=== PATIENT | female | born 1990 | race Caucasian/White ===

== ENCOUNTER 2022-04-29 07:32 | Emergency (ER) | payer OTHER, SELFPAY ==
--- NOTE | ~2022-04-29 | CT_ITS ---
EXAMINATION: CT ANGIOGRAM OF THE CHEST WITH CONTRAST (CT PULMONARY ANGIOGRAM FOR PE) CLINICAL INFORMATION: Exertion dyspnea. Elevated D-dimer. COMPARISON: Chest radiograph from 04/29/2022. TECHNIQUE: Prior to contrast administration, noncontrast localization images were obtained. Subsequently, multidetector volumetric imaging was performed from the thoracic inlet to below the diaphragms following the administration of 65 mL Omnipaque 350 intravenous contrast. No contrast reaction reported. Sagittal, coronal, and MIP oblique sagittal reformatted images were obtained on the CT workstation, uploaded to PACS, and reviewed. This CT examination was performed using dose optimization techniques as appropriate, variously including the following: *Automated exposure control *Adjustment of mA and/or kV according to patient size (this includes techniques or standardized protocols for targeted exams where dose is matched to indication/reason for exam; i.e. extremities or head) *Use of iterative reconstruction technique DLP: Total exam dose-length product 210 mGy-cm FINDINGS: LUNGS AND PLEURA: Trachea and central airways are widely patent and normal in caliber. Lungs are clear. No interstitial infiltrate, edema, consolidation or pleural effusion. No pneumothorax. There is no suspicious lung nodule or mass. QUALITY OF STUDY/CONTRAST BOLUS: Satisfactory. CARDIOVASCULAR: The pulmonary arteries are normal in size. No embolic filling defects are identified within the main, lobar or segmental vessels. Cardiac chambers are of normal size. No pericardial effusion. Thoracic aorta is normal. MEDIASTINUM/LOWER NECK: No mediastinal mass. The esophagus is unremarkable. The thyroid gland is partially included in the [id number]. There are no focal lesions within the gland. LYMPHATICS: No pathologic sized axillary, hilar or mediastinal lymph nodes. UPPER ABDOMEN: No contrast reflux into the inferior vena cava. No acute findings in the visualized portion of the upper abdomen. The visualized abdominal aorta is normal in caliber. OSSEOUS STRUCTURES: No acute or suspicious osseous abnormality. CT/CT angio chest PE protocol IMPRESSION: No acute imaging abnormalities in the chest. No evidence of pulmonary embolism, pneumonia or pleural effusion.
--- NOTE | ~2022-04-29 | XR_ITS ---
EXAMINATION: XR CHEST CLINICAL INFORMATION: Shortness of breath COMPARISON: None TECHNIQUE: Frontal view of the chest was obtained. FINDINGS: Lungs are well-inflated and clear. Trachea is midline in position. No interstitial disease, consolidation or mass. No pleural effusion or pneumothorax. Cardiac silhouette and pulmonary vessels are normal in size. The mediastinum and raul have normal contour. The visualized bones, and upper abdomen, are unremarkable. XR/XR chest 1V IMPRESSION: No evidence of pneumonia. No acute cardiopulmonary abnormality.
[2022-04-29 07:45] VITALS: BP 127/71; PULSE 71; RESP 18; TEMP 36.5; O2SAT 100; BMI 24.1
[2022-04-29 08:21] LABS: COVID-19 Test Negative (Negative); IDNOW Serial# 16C4AD1C; Influenza A Negative (Negative); Influenza B2 Negative (Negative)
--- NOTE | 2022-04-29 09:55 | ECG_ITS ---
Test Reason : sob Blood Pressure : / mmHG Vent. Rate : 063 BPM Atrial Rate : 063 BPM P-R Int : 154 ms QRS Dur : 082 ms QT Int : 416 ms P-R-T Axes : 001 066 038 degrees QTc Int : 425 ms Normal sinus rhythm with sinus arrhythmia RSR' or QR pattern in V1 suggests right ventricular conduction delay Otherwise normal ECG When compared with ECG of 18-JUL-2011 12:06, No significant change was found Referred By: Jacklyn Moseley Electronically Signed By:NORRIS ROBERTSON MD
--- NOTE | 2022-04-29 10:29 | ED.GENADULT ---
HPI - General Adult General Chief complaint: Upper Respiratory Symptoms Stated complaint: SOB Time Seen by Provider: 04/29/22 09:06 Source: patient Mode of arrival: ambulatory History of Present Illness HPI narrative: 31 year old female with no significant past medical history presenting to the ED complaining of exertional dyspnea and generalized fatigue/weakness x 2-3 days. Admits yesterday after walking up the stairs became very short of breath and near syncopal. Denies LOC. reports mild associated chest discomfort. Is a cigarette smoker. Denies fever, chills, abdominal pain, nausea/vomiting, calf pain, pedal edema, history of clots, recent travel Onset (ago): day(s) Related Data Allergies Allergy/AdvReac Type Severity Reaction Status Date / Time No Known Allergies Allergy Verified 04/29/22 07:44 [No Known Allergies*] Review of Systems Review of Systems: Constitutional: No Fever, No Chills, No Fatigue, No Malaise ENT/Mouth: No Ear Pain, No Nasal Congestion, No Sinus Pain, No Hoarseness, No sore throat, No Rhinorrhea, No Swallowing Difficulty Eyes: No Eye Pain, No Swelling, No Redness, No Vision Changes Cardiovascular: + Chest Pain, + SOB, + Dyspnea on Exertion, No Orthopnea, No Edema, No Palpitations Respiratory: No Cough, No Sputum, + Dyspnea Gastrointestinal: No Nausea, No Vomiting, No Diarrhea, No Constipation, No Abdominal pain Genitourinary: No Dysuria, No Urinary Frequency, No Hematuria, No Flank Pain, No Urinary Flow Changes, No Hesitancy Musculoskeletal: No joint pain, No Myalgias, No Joint Swelling Skin: No Skin Lesions, No rash Neuro: No Weakness, No Numbness, No Paresthesias, No Loss of Consciousness, + lightheadedness (resolved), No Headache Yes all other systems are reviewed and are negative Constitutional: Constitutional: Reports as per [facility] Past Medical History Attestation statement: The following information was validated with the patient. Social History Social History Advance Directives: No Advance Directives Information Provided: No Physical Exam ED Vital Signs: Vital Signs - 24 hr 04/29/22 07:45 04/29/22 11:03 Temperature 97.7 F Pulse Rate 71 64 Respiratory Rate 18 20 Blood Pressure 127/71 108/61 Pulse Oximetry 100 99 Oxygen Delivery Method Room Air Room Air BMI result Body Mass Index 24.1 Const General: cooperative, healthy appearing, no acute distress, alert and awake Orientation/consciousness: patient oriented x3 Limitations: no limitations HENMT Head: Yes normal to inspection and Yes atraumatic Ears: hearing grossly normal bilaterally General nose exam: Normal external nose present Face and sinus: Yes normal facial exam Eyes General: appearance normal, both eyes and all related structures EOM: EOMs intact bilaterally Neck Neck: Yes normal visual inspection and Yes no meningeal signs Resp Effort & Inspection: normal respiratory effort, no respiratory distress and not tachypneic Auscultation: clear to auscultation bilaterally, no crackles, no rales, no rhonchi and no wheezes Cardio Rate: regular rate Heart sounds: S1 normal heart sound present and S2 normal heart sound present GI Inspection: Yes normal to inspection Palpation (GI): Soft to palpation, nontender, no guarding and not rigid Skin Rashes: no rashes Wounds: no wounds Neuro General: patient oriented x3, gait normal, tone normal, moves all extremities, no meningeal signs, no focal motor deficits and CN's II-XI intact bilaterally Gait exam (Neuro): Normal gait present Extrem General: Yes normal to inspection and Yes no pedal edema Course Course Course Narrative: -1120--no leukocytosis. D-dimer elevated > will obtain CTA to rule out PE -troponin negative. Labs otherwise reassuring. UA contaminated will hold on antibiotic treatment until culture results -COVID-19 and influenza negative XR chest 1V IMPRESSION: No evidence of pneumonia. No acute cardiopulmonary abnormality. 1218--CT angio chest PE protocol IMPRESSION: No acute imaging abnormalities in the chest. No evidence of pulmonary embolism, pneumonia or pleural effusion. >Results discussed with patient including worrisome signs and symptoms and strict return precautions, and when to return to the emergency department. They verbalized understanding and feel safe for discharge at this time. Medications Administered Discontinued Medications Generic Name Dose Route Start Last Admin Trade Name Freq PRN Reason Stop Dose Admin Iohexol 65 ml 04/29/22 11:31 04/29/22 11:32 Iohexol 350 Mg/Ml 100 Ml Infus..Btl IV 04/29/22 11:32 65 ml ONCE ONE Administration Medical Decision Making [facility] Narrative Medical decision making narrative: 31 year old female with no significant past medical history presenting to the ED complaining of exertional dyspnea and generalized fatigue/weakness x 2-3 days. On exam vital signs stable, NAD, nontoxic appearing, exam nonfocal. Concern for viral illness vs PE. Lower suspicion for ACS or pneumonia. Plan: EKG, labs, CXR, COVID-19/influenza testing Medical Records Medical records reviewed: Yes I reviewed the patient's medical records. Lab Data Lab results reviewed: Yes I reviewed the patient's lab results. Result diagrams: 04/29/22 10:27 04/29/22 10:27 Labs: Lab Results 04/29/22 04/29/22 04/29/22 Range/Units 07:48 07:48 10:27 WBC 7.7 (4.8-10.8) X10*3/uL RBC 3.99 L (4.20-5.50) X10*6/uL Hgb 12.1 (12.0-16.0) g/dl Hct 37.0 (37.0-47.0) % MCV 92.7 (80.0-98.0) fL MCH 30.3 (27.0-33.0) pg MCHC 32.7 (31.0-35.0) g/dl RDW 14.7 (11.0-16.0) % Plt Count 252 (160-400) X10*3/uL MPV 10.2 (9.4-12.3) fL Immature Gran % (Auto) 0.5 H (0.0-0.4) % Neut % (Auto) 74.6 H (45-73) % Lymph % (Auto) 19.3 L (20-40) % [place] % (Auto) 3.8 (2-11) % Eos % (Auto) 1.3 (0-4) % Baso % (Auto) 0.5 (0-2) % Lymph # (Auto) 1.5 (1.2-4.9) X10*3/uL [place] # (Auto) 0.3 (0.1-1.2) X10*3/uL Eos # (Auto) 0.1 (0.0-0.4) X10*3/uL Baso # (Auto) 0.0 (0.0-0.2) X10*3/uL Abs Immat Gran (auto) 0.04 H (0.00-0.03) X10*3/uL Absolute Neuts (auto) 5.7 (2.0-8.3) x10*3/uL Absolute Nucleated RBC 0.000 (0.0-0.012) X10*3/uL Nucleated RBC % (auto) 0.0 (0.0-0.2) /100WBC PT (10.0-13.1) SEC INR (0.9-1.1) D-Dimer High Sensitivty NG/ML Sodium (135-145) mmol/L Potassium (3.3-5.1) mmol/L Chloride (96-108) mmol/L Carbon Dioxide (22-29) mmol/L Anion Gap (12-20) BUN (9-16) mg/dL Creatinine (0.5-1.4) mg/dL Estim Creat Clear Calc Estimated GFR Random Glucose (60-115) mg/dL Calcium (8.4-10.2) mg/dL Total Bilirubin (0.0-1.0) mg/dL Direct Bilirubin (0.0-0.5) mg/dL AST (5-31) U/L ALT (0-31) U/L Alkaline Phosphatase (39-117) U/L Troponin I High Sens (<3.5-17.0) ng/L B-Natriuretic Peptide (<100) pg/mL Total Protein (6.5-8.0) g/dL Albumin (3.5-5.0) g/dL Urine Color Urine Appearance Urine pH (5.0-9.0) Ur Specific [place] (1.005-1.025) Urine Protein (Neg-Trace) mg/dL Urine Glucose (UA) (Negative) mg/dL Urine Ketones (Negative) mg/dL Urine Blood (Negative) Urine Nitrite (Negative) Ur Leukocyte Esterase (Negative) Urine RBC (0-2) /HPF Urine WBC (0-5) /HPF Ur Squamous Epith Cells (0-2) /HPF Urine Bacteria (None Seen) Hyaline Casts (0-2) /LPF Urine Test (NEGATIVE) COVID-19 ([facility]) Negative (Negative) COVID-19 Clin Com See Note Influenza Type A ([facility]) Negative (Negative) Influenza Type B ([facility] ENRIQUE) Negative (Negative) Influenza A & B Note See Note 04/29/22 04/29/22 04/29/22 Range/Units 10:27 10:27 10:27 WBC (4.8-10.8) X10*3/uL RBC (4.20-5.50) X10*6/uL Hgb (12.0-16.0) g/dl Hct (37.0-47.0) % MCV (80.0-98.0) fL MCH (27.0-33.0) pg MCHC (31.0-35.0) g/dl RDW (11.0-16.0) % Plt Count (160-400) X10*3/uL MPV (9.4-12.3) fL Immature Gran % (Auto) (0.0-0.4) % Neut % (Auto) (45-73) % Lymph % (Auto) (20-40) % [place] % (Auto) (2-11) % Eos % (Auto) (0-4) % Baso % (Auto) (0-2) % Lymph # (Auto) (1.2-4.9) X10*3/uL [place] # (Auto) (0.1-1.2) X10*3/uL Eos # (Auto) (0.0-0.4) X10*3/uL Baso # (Auto) (0.0-0.2) X10*3/uL Abs Immat Gran (auto) (0.00-0.03) X10*3/uL Absolute Neuts (auto) (2.0-8.3) x10*3/uL Absolute Nucleated RBC (0.0-0.012) X10*3/uL Nucleated RBC % (auto) (0.0-0.2) /100WBC PT 11.0 (10.0-13.1) SEC INR 1.0 (0.9-1.1) D-Dimer High Sensitivty 584 NG/ML Sodium 138 (135-145) mmol/L Potassium 4.2 (3.3-5.1) mmol/L Chloride 106 (96-108) mmol/L Carbon Dioxide 23 (22-29) mmol/L Anion Gap 13 (12-20) BUN 7 L (9-16) mg/dL Creatinine 0.69 (0.5-1.4) mg/dL Estim Creat Clear Calc 98.5 Estimated GFR > 60 Random Glucose 94 (60-115) mg/dL Calcium 9.4 (8.4-10.2) mg/dL Total Bilirubin 0.4 (0.0-1.0) mg/dL Direct Bilirubin < 0.2 (0.0-0.5) mg/dL AST 16 (5-31) U/L ALT 16 (0-31) U/L Alkaline Phosphatase 38 L (39-117) U/L Troponin I High Sens < 3.5 (<3.5-17.0) ng/L B-Natriuretic Peptide (<100) pg/mL Total Protein 7.1 (6.5-8.0) g/dL Albumin 4.3 (3.5-5.0) g/dL Urine Color Urine Appearance Urine pH (5.0-9.0) Ur Specific [place] (1.005-1.025) Urine Protein (Neg-Trace) mg/dL Urine Glucose (UA) (Negative) mg/dL Urine Ketones (Negative) mg/dL Urine Blood (Negative) Urine Nitrite (Negative) Ur Leukocyte Esterase (Negative) Urine RBC (0-2) /HPF Urine WBC (0-5) /HPF Ur Squamous Epith Cells (0-2) /HPF Urine Bacteria (None Seen) Hyaline Casts (0-2) /LPF Urine Test (NEGATIVE) COVID-19 ([facility]) (Negative) COVID-19 Clin Com Influenza Type A ([facility] ENRIQUE) (Negative) Influenza Type B ([facility]) (Negative) Influenza A & B Note 04/29/22 04/29/22 04/29/22 Range/Units 10:27 10:30 10:30 WBC (4.8-10.8) X10*3/uL RBC (4.20-5.50) X10*6/uL Hgb (12.0-16.0) g/dl Hct (37.0-47.0) % MCV (80.0-98.0) fL MCH (27.0-33.0) pg MCHC (31.0-35.0) g/dl RDW (11.0-16.0) % Plt Count (160-400) X10*3/uL MPV (9.4-12.3) fL Immature Gran % (Auto) (0.0-0.4) % Neut % (Auto) (45-73) % Lymph % (Auto) (20-40) % [place] % (Auto) (2-11) % Eos % (Auto) (0-4) % Baso % (Auto) (0-2) % Lymph # (Auto) (1.2-4.9) X10*3/uL [place] # (Auto) (0.1-1.2) X10*3/uL Eos # (Auto) (0.0-0.4) X10*3/uL Baso # (Auto) (0.0-0.2) X10*3/uL Abs Immat Gran (auto) (0.00-0.03) X10*3/uL Absolute Neuts (auto) (2.0-8.3) x10*3/uL Absolute Nucleated RBC (0.0-0.012) X10*3/uL Nucleated RBC % (auto) (0.0-0.2) /100WBC PT (10.0-13.1) SEC INR (0.9-1.1) D-Dimer High Sensitivty NG/ML Sodium (135-145) mmol/L Potassium (3.3-5.1) mmol/L Chloride (96-108) mmol/L Carbon Dioxide (22-29) mmol/L Anion Gap (12-20) BUN (9-16) mg/dL Creatinine (0.5-1.4) mg/dL Estim Creat Clear Calc Estimated GFR Random Glucose (60-115) mg/dL Calcium (8.4-10.2) mg/dL Total Bilirubin (0.0-1.0) mg/dL Direct Bilirubin (0.0-0.5) mg/dL AST (5-31) U/L ALT (0-31) U/L Alkaline Phosphatase (39-117) U/L Troponin I High Sens (<3.5-17.0) ng/L B-Natriuretic Peptide 17 (<100) pg/mL Total Protein (6.5-8.0) g/dL Albumin (3.5-5.0) g/dL Urine Color Yellow Urine Appearance Turbid Urine pH 7.0 (5.0-9.0) Ur Specific [place] 1.020 (1.005-1.025) Urine Protein Negative (Neg-Trace) mg/dL Urine Glucose (UA) Negative (Negative) mg/dL Urine Ketones Negative (Negative) mg/dL Urine Blood Negative (Negative) Urine Nitrite Negative (Negative) Ur Leukocyte Esterase Small (1+) H (Negative) Urine RBC 0-2 (0-2) /HPF Urine WBC 11-20 H (0-5) /HPF Ur Squamous Epith Cells >20 (0-2) /HPF Urine Bacteria 4+ (None Seen) Hyaline Casts 0-2 (0-2) /LPF Urine Test NEGATIVE (NEGATIVE) COVID-19 ([facility]) (Negative) COVID-19 Clin Com Influenza Type A ([facility] ENRIQUE) (Negative) Influenza Type B ([facility] ENRI[facility]) (Negative) Influenza A & B Note ECG Data Attestation: I personally reviewed and interpreted this ECG as follows: Interpretation: EKG normal sinus rhythm at a rate of 63. QTC 425. No STEMI. Discharge Plan Discharge Clinical Impression: Exertional dyspnea Patient Disposition: Home, Self-Care Instructions: Dyspnea (ED) Additional Instructions: Your blood work and imaging studies are reassuring. You were negative for a blood clot or pneumonia. He tested negative for COVID-19 and the flu You need to have close follow-up with her doctor Breast Stay hydrated If symptoms persist or worsen, he feel like you are going to pass out/pass out, have persistent chest pain or shortness of breath return to the emergency department Referrals: Physician,None [Primary Care Provider] - 5 days
[2022-04-29 10:33] LABS: MANUAL DIFF FLAG NO
[2022-04-29 10:36] LABS: Basophils Percent Auto 0.5 % (0-2); Eosinophils Absolute Auto 0.1 X10*3/uL (0.0-0.4); Eosinophils Percent Auto 1.3 % (0-4); Hemoglobin 12.1 g/dl (12.0-16.0); Imm Gran Abs Auto 0.04 X10*3/uL (0.00-0.03); Imm Gran Pct Auto 0.5 % (0.0-0.4); Lymphocytes Absolute Auto 1.5 X10*3/uL (1.2-4.9); Lymphocytes Percent Auto 19.3 % (20-40); Mean Corpuscular HGB Conc 32.7 g/dl (31.0-35.0); Mean Corpuscular Hemoglobin 30.3 pg (27.0-33.0); Mean Corpuscular Volume 92.7 fL (80.0-98.0); Mean Platelet Volume 10.2 fL (9.4-12.3); Monocytes Absolute Auto 0.3 X10*3/uL (0.1-1.2); Monocytes Percent Auto 3.8 % (2-11); Neutrophils Absolute Auto 5.7 x10*3/uL (2.0-8.3); Neutrophils Percent Auto 74.6 % (45-73); Platelet Count 252 X10*3/uL (160-400); Red Blood Count 3.99 X10*6/uL (4.20-5.50); Red Cell Distribution Width 14.7 % (11.0-16.0); White Blood Count 7.7 X10*3/uL (4.8-10.8)
[2022-04-29 10:41] LABS: Appearance Urine Turbid; Color Urine Yellow; Glucose Urine UA Negative (Negative); Leukocyte Esterase Urine Small (1+) (Negative); Nitrite Urine Negative (Negative); UMIC TRIGGER UACC YES; Urine Blood Negative (Negative); Urine Ketones Negative (Negative); Urine Protein Negative (Neg-Trace)
[2022-04-29 10:43] LABS: Bacteria Urine 4+ (None Seen); Hyaline Casts Urine 0-2 /LPF (0-2); RBC Urine 0-2 /HPF (0-2); Squamous Epithelial Cell Urine >20 /HPF (0-2); UACC Culture Trigger YES
[2022-04-29 10:45] LABS: UPreg QC Valid YES; Urine Pregnancy NEGATIVE (NEGATIVE)
[2022-04-29 10:48] LABS: D Dimer High Sensitivity 584 NG/ML
[2022-04-29 10:56] LABS: Troponin-I High Sensitivity < 3.5 ng/L (<3.5-17.0)
[2022-04-29 11:00] LABS: B Type Natriuretic Peptide 17 pg/mL (<100)
[2022-04-29 11:01] LABS: Alanine Aminotransferase 16 U/L (0-31); Albumin Level 4.3 g/dL (3.5-5.0); Alkaline Phosphatase 38 U/L (39-117); Anion Gap 13 (12-20); Aspartate Amino Transferase 16 U/L (5-31); Bilirubin Direct < 0.2 mg/dL (0.0-0.5); Bilirubin Total 0.4 mg/dL (0.0-1.0); Blood Urea Nitrogen 7 mg/dL (9-16); Calcium 9.4 mg/dL (8.4-10.2); Carbon Dioxide 23 mmol/L (22-29); Chloride 106 mmol/L (96-108); Creatinine Clr Calc Pharmacy 98.5; Estimated Glomerular Filt Rate > 60; Glucose Random 94 mg/dL (60-115); Potassium 4.2 mmol/L (3.3-5.1); Sodium 138 mmol/L (135-145); Total Protein 7.1 g/dL (6.5-8.0)
[2022-04-29 11:03] VITALS: BP 108/61; PULSE 64; RESP 20; O2SAT 99
[2022-04-29] MEDS: iohexoL 350 MG/ML 100 ML INFUS..BTL 65 ML IV (11:32)
== END 2022-04-29 12:35 | disposition home or self-care (01) ==
PROVIDERS: Physician Assistant; Emergency Provider Emergency Medicine
DX: R06.02 Shortness of breath (principal); R42 Dizziness and giddiness; Z20.822 Contact with and (suspected) exposure to COVID-19; Z79.899 Other long term (current) drug therapy
CPT/HCPCS: 36415; 71045; 71275; 80048; 80076; 81001; 81025; 83880; 84484; 85025; 85379; 85610; 87086; 87502; 87635; 93005; 99284; Q9967

== ENCOUNTER 2022-05-06 14:54 | Emergency (ER) | payer OTHER, SELFPAY ==
--- NOTE | ~2022-05-06 | XR_ITS ---
EXAMINATION: XR CHEST CLINICAL INFORMATION: Chest pain. Shortness of breath. COMPARISON: Chest x-ray 04/29/2022 TECHNIQUE: Frontal view of the chest was obtained. 3:17 PM FINDINGS: No significant abnormality is noted involving the heart, lungs, mediastinum, bony thorax or soft tissues. XR/XR chest 1V IMPRESSION: Unremarkable examination.
--- NOTE | 2022-05-06 14:55 | ECG_ITS ---
Test Reason : chest pain Blood Pressure : / mmHG Vent. Rate : 062 BPM Atrial Rate : 062 BPM P-R Int : 120 ms QRS Dur : 082 ms QT Int : 402 ms P-R-T Axes : -01 069 038 degrees QTc Int : 408 ms Normal sinus rhythm RSR' or QR pattern in V1 suggests right ventricular conduction delay Otherwise normal ECG When compared with ECG of 29-APR-2022 09:59, No significant change was found Referred By: Generic ED Physician Electronically Signed By:NORRIS ROBERTSON MD
[2022-05-06 15:03] VITALS: BP 121/65; PULSE 67; RESP 16; TEMP 36.5; O2SAT 100; BMI 24.1
--- NOTE | 2022-05-06 15:18 | ED_ITS ---
HPI - Chest Pain General Chief Complaint: Chest Pain Stated Complaint: Chest Pain x 2 weeks Time Seen by Provider: 05/06/22 15:16 Source: patient Mode of arrival: ambulatory Limitations: no limitations History of Present Illness HPI narrative: Patient is a 31-year-old female who presents to the emergency department for evaluation of substernal chest pain. Pain is made worse with particular movements as well as deep inspiration. She is having intermittent shortness of breath and fatigue as well. She was evaluated in the emergency department for similar complaints when her symptoms started, states that she was ultimately discharged home. Denies fevers, chills, nasal congestion, sore throat, nausea, vomiting, abdominal pain, numbness or tingling of the extremities, syncopal episodes, weakness, dizziness, lightheadedness, vision changes. Denies personal history of DVT/PE, recent prolonged immobilization, travel, calf pain or leg swelling. Related Data Previous Rx's Medication Instructions Recorded albuterol sulfate 90 mcg/actuation 2 puff inhalation Q4-6H PRN 05/06/22 aerosol inhaler shortness of breath or wheezing #6.7 grams Allergies Allergy/AdvReac Type Severity Reaction Status Date / Time No Known Allergies Allergy Verified 05/06/22 15:06 [No Known Allergies*] Review of Systems Review of Systems: Constitutional : No Weight loss, No Fever, No Chills ENT/Mouth :? No sore throat, No Rhinorrhea Eyes: No Eye Pain, No Swelling Cardiovascular : pos Chest Pain, pos SOB, no Dyspnea on Exertion, No Orthopnea, No Edema, No Palpitations Respiratory : No Cough, No Sputum Gastrointestinal : No Nausea, No Vomiting, No Diarrhea, No abdominal Pain, No Hematochezia, No Melena Genitourinary : No Dysuria, No Urinary Frequency Musculoskeletal : No joint pain, No Myalgias, No Joint Swelling Skin : No Skin Lesions, No rash Neuro : No Weakness, No Numbness, No Dizziness, No Headache Psych : No Anxiety/Panic, No Depression Yes all other systems are reviewed and are negative [facility] Past Medical History Attestation statement: The following information was validated with the patient. Source: old records reviewed Social History Social History Advance Directives: No Advance Directives Information Provided: No Physical Exam Vital Signs: Vital Signs: Last Vital Signs Temp 97.7 F 05/06/22 15:03 Pulse 67 05/06/22 15:03 Resp 16 05/06/22 15:03 BP 121/65 05/06/22 15:03 Pulse Ox 100 05/06/22 15:03 O2 Del Method 05/06/22 15:03 BMI result Body Mass Index 24.1 Appearance: Alert.?Oriented to person, place and time. No acute distress.?Normal affect. Eyes: Pupils equal, round and reactive to light.? ENT: Pharynx normal.?? Neck: Normal inspection.? Neck supple.?? CVS: Heart sounds normal. Normal heart rate and rhythm.? Pulses normal.?? Respiratory: No respiratory distress.? Lung sounds clear to auscultation bilaterally?? Abdomen: Soft and non-tender. Normoactive bowel sounds. ?? Skin: Skin warm and dry.? Normal skin color.? Extremities: No lower extremity edema.? No calf ttp? Neuro: Moves all extremities spontaneously. Sensation intact bilaterally.No focal neuro deficits. Ambulates with normal steady gait. Course Course Course Narrative: Patient is a 31-year-old female with no pertinent past medical history presenting to emergency department for evaluation of ongoing chest pain and shortness of breath with fatigue. Of note patient was seen in the emergency department 1 week ago 04/29/2022 with similar complaints, chest x-ray at that time was negative, had an elevated D-dimer but negative chest CTA. She has not yet followed up with a primary care provider as she does not have one. At the time of examination she is well-appearing. No apparent distress. She is a febrile without tachycardia, tachypnea, or hypoxia. Chest x-ray today reveals no acute cardiopulmonary findings. EKG reveals normal sinus rhythm without concern for acute ischemic changes, is consistent with prior EKG obtained 1 week ago. Low suspicion for ACS, pneumonia. Given recent negative CTA, low suspicion for pulmonary embolism. Pain most likely muscular in nature, she expresses shortness of breath particularly while at work. Discussed plan of care for discharge home, NSAIDs, albuterol inhaler to use as needed for shortness of breath, outpatient follow-up as needed, reviewed worrisome signs and symptoms to return back to emergency department for. All questions answered. Patient discharged home in stable condition. [facility] - Chest Pain Medical Records Data Attestation: I reviewed the patient's medical records. Imaging Data Chest x-ray: Radiologist's impression: XR/XR chest 1V IMPRESSION: Unremarkable examination. ECG Data ECG #1: Attestation: I personally reviewed and interpreted this ECG as follows: ECG interpretation date: 05/06/22 Prior ECG tracings: available for review Interpretation: Rate: 62 Rhythm:? Normal sinus rhythm [place]:? Normal Normal P waves.? Normal [place].?? Normal QRS complex.?? ST T wave :??No ST elevation, no ST depression, no T-wave inversion qTC: 408 prior studies:? April 2022 The study has been interpreted contemporaneously by me. Discharge Plan Discharge Clinical Impression: Costochondritis Patient Disposition: Home, Self-Care Instructions: Costochondritis (ED) Additional Instructions: As discussed, please be sure to rest over the next few days. You can take ibuprofen 200 mg, 3 tablets (600mg) every 6-8 hours as needed for pain, in addition to Tylenol 500 mg, 2 tablets (1,000mg) every 4-6 hours as needed for pain, but not to exceed 3 doses daily (3,000mg).? Prescription for an albuterol inhaler was sent to the pharmacy to use as needed for shortness of breath. Follow-up with the primary care provider as needed Return to emergency department with any new or worsening symptoms or concerns. Prescriptions: New albuterol sulfate 90 mcg/actuation HFA aerosol inhaler 2 puff inhalation Q4-6H PRN (Reason: shortness of breath or wheezing) Qty: 6.7 0RF Referrals: Physician,None [Primary Care Provider] - Stand Alone Forms: Work/School Release
== END 2022-05-06 15:54 | disposition home or self-care (01) ==
PROVIDERS: Emergency Provider Emergency Medicine Emergency Medical Services
DX: M94.0 Chondrocostal junction syndrome [Tietze] (principal); R07.89 Other chest pain; R06.02 Shortness of breath
CPT/HCPCS: 71045; 93005; 99283

== ENCOUNTER 2022-12-08 11:13 | Outpatient (REF) | payer OTHER, SELFPAY | END 2022-12-08 11:14 | disposition home or self-care (01) | LOC: HO.LNP 11:13 | PROVIDERS: Visit Provider Advanced Practice Midwife | DX: O26.899 Other specified pregnancy related conditions, unspecified trimester (principal); N89.8 Other specified noninflammatory disorders of vagina | CPT/HCPCS: 81025; 99202 ==

== ENCOUNTER 2022-12-08 11:49 | Outpatient (REF) | payer OTHER, SELFPAY ==
[2022-12-09 11:57] LABS: CT PCR NOT DETECTED (Not Detect.); NG PCR NOT DETECTED (Not Detect.)
[2022-12-09 13:56] LABS: BV Int Neg Control Negative (Negative); BV Int Pos Control Positive (Positive)
== END 2022-12-08 11:50 | disposition home or self-care (01) ==
LOC: HO.LAB 11:49
PROVIDERS: Visit Provider Advanced Practice Midwife
DX: N89.8 Other specified noninflammatory disorders of vagina (principal)
CPT/HCPCS: 0353U; 87480; 87510; 87660

== ENCOUNTER 2022-12-16 15:00 | Outpatient (REF) | payer OTHER, SELFPAY ==
--- NOTE | ~2022-12-16 | US_ITS ---
EXAMINATION: US OBSTETRICAL ULTRASOUND CLINICAL INFORMATION: Irregular menstruation. Unsure of last menstrual period. COMPARISON: None available. LMP: 10/19/2022. Gestational age by maternal dates is 8 weeks 2 days. Estimated date of delivery by maternal dates is 07/26/2023. TECHNIQUE: First-trimester OB ultrasound. FINDINGS: There is a single intrauterine gestational sac with visible yolk sac, embryo/fetus, and cardiac activity. There is no significant subchorionic hemorrhage or hematoma. HR: 163 beats per minute. CRL (crown rump length): 1.72 cm (8 weeks 2 days +/- 4 days). YEISON (estimated date of delivery): 07/26/2023 +/- 4 days. MATERNAL ADNEXA: The right maternal ovary measures 3.6 x 1.5 x 1.5 cm. No adnexal abnormality. The left maternal ovary measures 3.5 x 2.7 x 2.3 cm. No adnexal abnormality. No maternal pelvic ascites. US/US OB <= 14 weeks fetus IMPRESSION: 1. Single intrauterine gestation with ultrasound gestational age of 8 weeks 2 days +/- 4 days. 2. Estimated date of delivery is 07/26/2023 +/- 4 days. 3. No maternal adnexal mass or pelvic ascites.
== END 2022-12-16 15:01 | disposition home or self-care (01) ==
LOC: HO.US 15:00
PROVIDERS: Visit Provider Advanced Practice Midwife
DX: N92.6 Irregular menstruation, unspecified (principal)
CPT/HCPCS: 76801

== ENCOUNTER 2022-12-27 10:03 | Outpatient (AMB) | payer OTHER, SELFPAY ==
[2022-12-27 10:31] VITALS: BP 100/60; BMI 25.5
--- NOTE | 2022-12-27 10:31 | A.OFFVIS_ITS ---
Intake Vital Signs 12/27/22 10:31 Height 5 ft 1 in Weight 135 lb BMI 25.5 BP 100/60 Intake Visit Reasons: US follow up/ok per KM Intake Note: The patient agreed to use of a health care / medical job titles during this encounter. Scribed for DAVID Carbajal by Sarai Pleitez health care / medical job titles, on 12/27/2022 at 10:43 am EST. Allergies No Known Allergies [No Known Allergies*] Allergy (Verified 12/27/22 10:32) Patient : Yes HPI HPI Comments History of Present Illness Details She is here to discuss US results done on 12/16/22, currently report not read, tech report available. She also reports a recent migraines, and took Tylenol and wondered if that was okay. Hx. of migraines. Denies VB or pelvic pain. Admits to taking PNV. PFSH Medical History Positive test Surgical History History of ear surgery Family History Unknown Adopted Social History Alcohol intake: never Patient Tobacco Use Status: Never used Tobacco Patient : Yes Sexual orientation: Straight/Heterosexual Gender identity: Female Physical Exam Vital Signs: Last Vital Signs BP 100/60 12/27/22 10:31 BMI result Body Mass Index 25.5 Const General: cooperative, healthy appearing, comfortable, no acute distress, well developed, alert and awake Assessment & Plan Assessment & Plan (1) Positive test: Code(s): Z32.01 - Encounter for test, result positive Plan: Discussed: US preliminary results- IUP at 8.2wks on 12/16/22, TJQ=[id number], EDC 07/26/23, c/w LMP. Scheduling OB nurse visit, pt. prefers to do all of her care at [facility]. Phone contacts given. Pt. will call for her appt. at [facility] [place] [place] Midwifery department. Release of records to [facility]. Headaches: 2 regular strength Tylenol doses with small amount of coffee, visual disturbances warnings and when to call for further evaluation. Reviewed when to call for any VB reviewed. Discussed to call the service here for any emergencies/deliveries to be directed to [facility]. (2) Encounter to discuss test results: Code(s): Z71.2 - Person consulting for explanation of examination or test findings Coding Level of Care Code Est Pt Level 3 (28745) Diagnoses Positive test Z32.01 Encounter to discuss test results Z71.2
== END 2022-12-27 10:50 | disposition home or self-care (01) ==
LOC: HO.HWS 10:03
PROVIDERS: Visit Provider Advanced Practice Midwife
DX: Z32.01 Encounter for pregnancy test, result positive (principal); Z71.2 Person consulting for explanation of examination or test findings
CPT/HCPCS: 99213

== ENCOUNTER → 2022-12-27 10:03 | Outpatient (BNVA) | payer OTHER, SELFPAY | PROVIDERS: Visit Provider Advanced Practice Midwife | DX: Z71.2 Person consulting for explanation of examination or test findings (principal); Z32.01 Encounter for pregnancy test, result positive | CPT/HCPCS: 99212 ==

== ENCOUNTER 2024-07-14 12:25 | Emergency (ER) | payer OTHER, SELFPAY ==
[2024-07-14 12:54] VITALS: BP 108/67; PULSE 69; RESP 16; TEMP 37.1; O2SAT 99; BMI 35.2
--- NOTE | 2024-07-14 12:56 | ED.ABDPAIN ---
HPI - Abdominal Pain General Chief Complaint: Abdominal Pain Stated Complaint: Kidney stone sent by urgent care Time Seen by Provider: 07/14/24 17:21 Source: patient, RN notes reviewed and old records reviewed Mode of arrival: ambulatory Limitations: no limitations History of Present Illness ED Provider: Abby GARCIA narrative: 33-year-old female presents for evaluation of right flank pain. Patient reports that she initially had some lower abdominal discomfort 4 days ago. She reports that around the same time she noticed that her urine was smelling foul For the last 2 days she has had some right flank pain that comes and goes. The pain is 5/10 and feels like a stabbing. She denies any fevers or chills. Denies any abdominal pain She does have some nausea but no vomiting or diarrhea Denies any history of kidney stones She went to urgent care today and was referred to the emergency department Related Data Previous Rx's ?Medication ?Instructions ?Recorded vitamin with calcium 1 tab PO DAILY #90 tabs 12/08/22 no.72-iron 27 mg-folic acid 1 mg tablet ( Vitamins Plus Low Iron) cefuroxime axetil 500 mg tablet 500 mg PO Q12H #14 tabs 07/14/24 phenazopyridine 200 mg tablet 200 mg PO TID PRN pain 6 doses #6 07/14/24 (Pyridium) tabs Allergies Allergy/AdvReac Type Severity Reaction Status Date / Time No Known Allergies Allergy Verified 07/14/24 12:54 [No Known Allergies*] Review of Systems Constitutional: Denies body ache(s), Denies chills and Denies fever(s) Eyes: Denies blurry vision Denies vertigo and Denies dizziness Cardiovascular: Denies chest pain and Denies dyspnea Respiratory: Denies cough and Denies dyspnea Gastrointestinal: Denies abdominal pain, Reports nausea and Denies vomiting Musculoskeletal: Denies back pain Skin/Breast: Denies rash Denies vertigo and Denies dizziness Psychiatric: Denies anxiety PMFSH Past Medical History Medical History Positive test Surgical History History of ear surgery Family History Family History Unknown Adopted Social History Social History Alcohol intake: never Patient Tobacco Use Status: Never used Tobacco Advance Directives: No Advance Directives Information Provided: No Do you have a plan to hurt others: No Plan Sexual orientation: Straight/Heterosexual Gender identity: Female Physical Exam ED Vital Signs: Vital Signs - 24 hr 07/14/24 12:54 Temperature 98.7 F Pulse Rate 69 Respiratory Rate 16 Blood Pressure 108/67 Pulse Oximetry 99 Oxygen Delivery Method Room Air BMI result Body Mass Index 35.2 Const General: healthy appearing, comfortable, no acute distress, alert and awake Nutritional Appearance: well nourished Orientation/consciousness: patient oriented x3 HENMT Head: Yes normocephalic and Yes atraumatic Eyes Eyelids: Yes eyelids normal Conjunctivae: conjunctivae normal Sclerae: sclerae normal Corneas: corneas normal Pupils: Equal, round and reactive pupils present EOM: EOMs intact bilaterally Neck Neck: Yes full ROM Resp Effort & Inspection: normal respiratory effort, able to speak in complete sentences and not labored GI Other: Negative CVA tenderness bilaterally Inspection: No distended Palpation (GI): Soft to palpation, not firm, nontender, no guarding and not rigid Skin General skin exam: elasticity normal Neuro General: patient oriented x3 Cranial nerves: Yes Equal, round and reactive pupils present and Yes Bilaterally intact EOM present Cognition (Neuro): normal cognition Extrem Other: Moving all extremities well without any obvious deformities Course Course Course Narrative: This is a rapid medical exam. Deferred additional HPI, ROS, PE to primary provider. 33 yo with no known medical history here with complaints of right flank pain, pelvic pressure. Will obtain labs, UA LMP 3 weeks ago ROSANNE Johnson APRN Medical Decision Making Medical Decision Making MDM Narrative: 33-year-old female presents for evaluation of right flank pain. Her history exam is most consistent with pyelonephritis given UTI symptoms with burning with urination, frequency, foul-smelling urine and right flank pain. Her urinalysis is consistent with infection, there was no blood, so less likely obstructive uropathy. Her labs are reassuring there was no evidence of RICARDA, she has no leukocytosis, she is not septic. Vital signs are stable. I discussed possible CT imaging with the patient but did not feel this was absolutely necessary. The patient agrees that C scan is not likely to change plan of care, we will discharge the patient with cefuroxime b.i.d. x7 days as well as Pyridium. She was given return precautions Differential Diagnosis Differential Diagnoses: The differential diagnosis associated with the presentation includes UTI Pyelonephritis Obstructive uropathy Flank pain Lab Data MDM Lab Attestation statement: I reviewed the patient's lab results. No leukocytosis or anemia. Normal platelet count. No electrolyte abnormalities. Renal function within normal limits. Urinalysis consistent with infection 07/14/24 13:07 07/14/24 13:07 Labs: Lab Results 07/14/24 Range/Units 13:07 WBC 10.7 (4.8-10.8) X10*3/uL RBC 4.21 (4.20-5.50) X10*6/uL Hgb 12.9 (12.0-16.0) g/dl Hct 39.0 (37.0-47.0) % MCV 92.6 (80.0-98.0) fL MCH 30.6 (27.0-33.0) pg MCHC 33.1 (31.0-35.0) g/dl RDW 13.7 (11.0-16.0) % Plt Count 227 (160-400) X10*3/uL MPV 11.2 (9.4-12.3) fL Immature Gran % (Auto) 0.3 (0.0-0.4) % Neut % (Auto) 72.4 (45-73) % Lymph % (Auto) 19.1 L (20-40) % [place] % (Auto) 5.4 (2-11) % Eos % (Auto) 2.0 (0-4) % Baso % (Auto) 0.8 (0-2) % Lymph # (Auto) 2.1 (1.2-4.9) X10*3/uL [place] # (Auto) 0.6 (0.1-1.2) X10*3/uL Eos # (Auto) 0.2 (0.0-0.4) X10*3/uL Baso # (Auto) 0.1 (0.0-0.2) X10*3/uL Abs Immat Gran (auto) 0.03 (0.00-0.03) X10*3/uL Absolute Neuts (auto) 7.8 (2.0-8.3) x10*3/uL Absolute Nucleated RBC 0.000 (0.0-0.012) X10*3/uL Nucleated RBC % (auto) 0.0 (0.0-0.2) /100WBC Sodium 139 (135-145) mmol/L Potassium 3.9 (3.3-5.1) mmol/L Chloride 108 (96-108) mmol/L Carbon Dioxide 23 (22-29) mmol/L Anion Gap 12 (12-20) BUN 7 L (9-16) mg/dL Creatinine 0.74 (0.5-1.4) mg/dL Estim Creat Clear Calc 108.5 Estimated GFR > 60 Random Glucose 94 (60-115) mg/dL Calcium 9.5 (8.4-10.2) mg/dL Total Bilirubin 0.3 (0.0-1.0) mg/dL Direct Bilirubin 0.1 (0.0-0.5) mg/dL AST 19 (5-31) U/L ALT 17 (0-31) U/L Alkaline Phosphatase 53 (39-117) U/L Total Protein 8.0 (6.5-8.0) g/dL Albumin 4.2 (3.5-5.0) g/dL Urine Color Yellow Urine Appearance Cloudy Urine pH 7.0 (5.0-9.0) Ur Specific [place] 1.025 (1.005-1.025) Urine Protein Negative (Neg-Trace) mg/dL Urine Glucose (UA) Negative (Negative) mg/dL Urine Ketones Negative (Negative) mg/dL Urine Blood Negative (Negative) Urine Nitrite Negative (Negative) Ur Leukocyte Esterase Trace H (Negative) Urine RBC 0-2 (0-2) /HPF Urine WBC 6-10 H (0-5) /HPF Ur Squamous Epith Cells >20 (0-2) /HPF Urine Bacteria 4+ (None Seen) Hyaline Casts 0-2 (0-2) /LPF Urine Test NEGATIVE (NEGATIVE) Tests considered The following testing was considered but not selected: Consider CT scan of the abdomen pelvis but not selected has it is not likely to change the course of treatment Discharge Plan Discharge Clinical Impression: Pyelonephritis of right kidney Patient Disposition: Home, Self-Care Instructions: Kidney Infection (ED) Additional Instructions: Your workup in the ER today was reassuring. Your urine does appear to show an infection which is likely starting to affect your right kidney There was no blood in your urine, so it is far less likely that you have a kidney stone Take the antibiotic twice daily for 1 week You may use ibuprofen/Tylenol for pain. You may use Pyridium as needed for urinary pain This will turn your urine orange, this is a normal side effect that will resolve when you stop taking it Drink lots of fluids, return for new or worsening symptoms Prescriptions: New cefuroxime axetil 500 mg tablet 500 mg PO Q12H Qty: 14 0RF phenazopyridine [Pyridium] 200 mg tablet 200 mg PO TID PRN (Reason: pain) Qty: 6 0RF No Action Vitamin Plus Low Iron 27 mg iron- 1 mg tablet 1 tab PO DAILY Qty: 90 4RF Print Language: Turkish
[2024-07-14 13:18] LABS: MANUAL DIFF FLAG NO
[2024-07-14 13:23] LABS: Appearance Urine Cloudy; Color Urine Yellow; Glucose Urine UA Negative (Negative); Leukocyte Esterase Urine Trace (Negative); Nitrite Urine Negative (Negative); Specific Gravity - Urine 1.025 (1.005-1.025); UMIC TRIGGER UACC YES; Urine Blood Negative (Negative); Urine Ketones Negative (Negative); Urine Protein Negative (Neg-Trace)
[2024-07-14 13:24] LABS: Basophils Absolute Auto 0.1 X10*3/uL (0.0-0.2); Basophils Percent Auto 0.8 % (0-2); Eosinophils Absolute Auto 0.2 X10*3/uL (0.0-0.4); Hemoglobin 12.9 g/dl (12.0-16.0); Imm Gran Abs Auto 0.03 X10*3/uL (0.00-0.03); Imm Gran Pct Auto 0.3 % (0.0-0.4); Lymphocytes Absolute Auto 2.1 X10*3/uL (1.2-4.9); Lymphocytes Percent Auto 19.1 % (20-40); Mean Corpuscular HGB Conc 33.1 g/dl (31.0-35.0); Mean Corpuscular Hemoglobin 30.6 pg (27.0-33.0); Mean Corpuscular Volume 92.6 fL (80.0-98.0); Mean Platelet Volume 11.2 fL (9.4-12.3); Monocytes Absolute Auto 0.6 X10*3/uL (0.1-1.2); Monocytes Percent Auto 5.4 % (2-11); Neutrophils Absolute Auto 7.8 x10*3/uL (2.0-8.3); Neutrophils Percent Auto 72.4 % (45-73); Platelet Count 227 X10*3/uL (160-400); Red Blood Count 4.21 X10*6/uL (4.20-5.50); Red Cell Distribution Width 13.7 % (11.0-16.0); UPreg QC Valid YES; Urine Pregnancy NEGATIVE (NEGATIVE); White Blood Count 10.7 X10*3/uL (4.8-10.8)
[2024-07-14 13:26] LABS: Bacteria Urine 4+ (None Seen); Hyaline Casts Urine 0-2 /LPF (0-2); RBC Urine 0-2 /HPF (0-2); Squamous Epithelial Cell Urine >20 /HPF (0-2); UACC Culture Trigger YES
[2024-07-14 13:35] LABS: Alanine Aminotransferase 17 U/L (0-31); Albumin Level 4.2 g/dL (3.5-5.0); Alkaline Phosphatase 53 U/L (39-117); Anion Gap 12 (12-20); Aspartate Amino Transferase 19 U/L (5-31); Bilirubin Direct 0.1 mg/dL (0.0-0.5); Bilirubin Total 0.3 mg/dL (0.0-1.0); Blood Urea Nitrogen 7 mg/dL (9-16); Calcium 9.5 mg/dL (8.4-10.2); Carbon Dioxide 23 mmol/L (22-29); Chloride 108 mmol/L (96-108); Creatinine Clr Calc Pharmacy 108.5; Estimated Glomerular Filt Rate > 60; Glucose Random 94 mg/dL (60-115); Potassium 3.9 mmol/L (3.3-5.1); Sodium 139 mmol/L (135-145)
--- OUTSIDE RECORDS SUMMARY | 2024-07-14 17:27 | XMS_ITS | Clinical Summary ---
Author Organization [facility] [employer] [facility] Address [address] [place] [address] Care Team Providers Care Talent Acquisition Sourcer Name Role Phone Pcp, No Primary Care Provider [phone] Social History Tobacco Use Types Packs/Day Years Used Date Smoking Tobacco: Never Assessed Comments Unknown Sex and Gender Information Value Date Recorded Sex Assigned at Not on file Legal Sex Female 9:50 PM EDT Gender Identity Not on file Sexual Orientation Not on file Plan of Treatment Health Maintenance Due Date Last Done Comments Depression: Screening Annual ly using PHQ-2/9 in Adults 18 yrs or above (or HM Modifier)([place] [place] [facility]) 2010 Hepatitis C Virus Infection in Adolescents and Adults: Screening (or Modifier) ([place] [place] [facility]) 2010 SDOH Screening Reminder: Nely ually for all adults ([facility] [facility]) 2010 Tobacco Smoking Cessation: i n Adults excluding Women: Behavioral and Pharmacotherapy Interventions ([facility] [facility]) 2010 DTaP/Tdap/Td Vaccines ([facility]) (1 - Tdap) 12/02/2011 Lipid Screening: Once for Wo men aged 20 to 45 yrs ([facility]) 2012 Cervical Cancer Screenin 1-65 yrs of age (or Modifier) 2013 Cervical Cancer Screening: P ap every 3 yrs pts age 21-65 2013 Cervical Cancer: Pap Screeni ng with Modifier timing ([facility]) 2013 Cervical Cancer: hrHPV alone or with cotesting Pap for Pts 30-65yrs screening every 5yrs ([facility]) 2013 Flu Vaccination: Yearly for ages 18mos through 64 years (or Modifier)([facility]) 01/18/2024 COVID-19 Vaccine Screening: Initial Series and Booster Status ([facility]) (2023- season) 2024 Zoster/Shingles Vaccine Seri es Screening: Adults aged 18+ yrs (or HM Modifiers)([facility]) (1 of 2) 2042 Pneumococcal Vaccination Scr eening: Pts 0-19 & 19-64 yrs of age ([facility]) Aged Out No longer eligible based on patient's age to complete this topic Medical Devices Not on file Care Teams Talent Acquisition Sourcer Relationship Specialty Start Date End Date Pcp, No PCP - General Family Medicine 01/14/22
[2024-07-14 17:37] VITALS: BP 121/69; PULSE 64; RESP 16; TEMP 37.1; O2SAT 98
[2024-07-14] MEDS: Ketorolac Tromethamine 30 MG/ML VIAL IM (17:44)
[2024-07-14] MEDS: Phenazopyridine HCL 200 MG TABLET PO (17:45)
[2024-07-14] MEDS: cefuroxime axetiL 500 MG TABLET PO (17:45)
[2024-07-14 17:51] VITALS: BP 121/69; PULSE 64; RESP 16; TEMP 37.1; O2SAT 98
== END 2024-07-14 17:51 | disposition home or self-care (01) ==
PROVIDERS: Nurse Practitioner Family; Emergency Provider Emergency Medicine Emergency Medical Services
DX: N20.0 Calculus of kidney (principal); R10.2 Pelvic and perineal pain; R11.0 Nausea; Z79.899 Other long term (current) drug therapy
CPT/HCPCS: 36415; 80048; 80076; 81001; 81025; 85025; 87086; 96372; 99283; 99284; J1885